=== PATIENT | female | born 1960 | race Two or more races ===

== ENCOUNTER 2020-01-15 19:43 | Inpatient (IN) | payer MEDICARE, BC ==
[~2020-01-15] VITALS: Ht 167.6 cm; Wt 98.4 kg
--- NOTE | 2020-01-15 19:45 | NUR ---
PT CAME TO THE ER FOR BLE EDEMA AND GENERALIZED BODY PAIN X 2 WEEKS. PT STATES " I TRIED WATER PILLS TO GET RID OF IT BUT IT NEVER WORKED". PT AAOX4, AMBULATORY, VSS, RESPIRATIONS EVEN AND UNLABORED ON RA W/ NAD NOTED. PT CONNECTED TO THE LATHE SANDER AND POX
[2020-01-15] MEDS ORDERED: KETOROLAC TROMETHAMINE INJ 30 MG/ML VIAL ONE (20:20)
[2020-01-15] MEDS ORDERED: KETOROLAC TROMETHAMINE INJ 30 MG/ML VIAL IV ONE (20:30)
--- NOTE | 2020-01-15 20:31 | NUR ---
BLOOD COLLECTED AND SENT TO LAB
[2020-01-15 20:53] LABS: BASOPHILS # (AUTO) 0.1 /CMM (0.0-0.2); BASOPHILS % (AUTO) 1.2 % (0.0-2.0); EOSINOPHILS % (AUTO) 2.9 % (0.0-6.0); HEMATOCRIT 31 % (33-45); HEMOGLOBIN 10.5 g/dL (11.5-14.8); LYMPHOCYTES % (AUTO) 30.2 % (20.0-44.0); MEAN CORPUSCULAR HGB CONC 33 g/dl (31.0-36.0); MEAN CORPUSCULAR VOLUME 90 fL (82-100); MONOCYTES # (AUTO) 0.5 /CMM (0.1-1.30); MONOCYTES % (AUTO) 8.1 % (2.0-12.0); NEUTROPHILS # (AUTO) 3.8 /CMM (1.8-8.9); NEUTROPHILS % (AUTO) 57.6 % (43.0-81.0); PLATELET COUNT (AUTO) 192 /CMM (150-450); RED BLOOD CELL COUNT(AUTO) 3.48 MIL/uL (4.0-5.2); WHITE BLOOD COUNT (AUTO) 6.6 K/uL (4.3-11.0)
[2020-01-15 21:05] LABS: CARBON DIOXIDE 28 mmol/L (21-32); CHLORIDE 101 mmol/L (98-107); CREATININE 0.7 mg/dL (0.6-1.3); GLUCOSE 88 mg/dL (74-106); POTASSIUM 3.9 mmol/L (3.5-5.1); SODIUM SERUM 137 mmol/L (136-145); UREA NITROGEN, BLOOD 16 mg/dL (7-18)
[2020-01-15 21:19] LABS: ALANINE AMINOTRANSFERASE 26 U/L (12-78); ALBUMIN 3.6 g/dL (3.4-5.0); ALKALINE PHOSPHATASE 92 U/L (46-116); ASPARTATE AMINOTRANSFERASE 18 U/L (15-37); B-TYPE NATRIURETIC PEPTIDE 62 PG/ML (0-125); BILIRUBIN,TOTAL 0.1 mg/dL (0.2-1.0); TOTAL PROTEIN, SERUM 7.9 g/dL (6.4-8.2)
--- NOTE | 2020-01-15 22:01 | NUR ---
COVID SWAB COLLECTED AND SENT TO LAB
--- NOTE | 2020-01-15 22:39 | NUR ---
Call from lab. Rapid Covid negative.
[2020-01-15] MEDS ORDERED: FUROSEMIDE 40 MG/4 ML VIAL IV ONE (23:00)
[2020-01-15] MEDS ORDERED: FUROSEMIDE 40 MG/4 ML VIAL ONE (23:10)
--- NOTE | 2020-01-15 23:29 | NUR ---
NURSE NOT AVAILABLE AT THIS TIME FOR REPORT.
--- NOTE | 2020-01-15 23:52 | NUR ---
REPORT CALLED TO FLIGHT SERVICE SPECIALIST MARK. WILL TRANSPORT PT VIA [facility].
[2020-01-16] MEDS ORDERED: Z GUARD REMEDY 2 OZ OINT TP PRN
[2020-01-16] MEDS ORDERED: ONDANSETRON HCL/PF 4 MG/2 ML VIAL IVP PRN
[2020-01-16] MEDS ORDERED: MAG HYDROX/AL HYDROX/SIMETH 30 ML UDC PO PRN
--- NOTE | 2020-01-16 00:05 | NUR ---
SALES PROMOTER NOTES RECEIVED PT FROM ER VIA [facility] ON ROOM AIR SPO2 98% NO SIGN AND SYMPTOMS OF RESPIRATORY DISTRESS, ABLE TO WALK GOING TO THE BED FROM [facility], V/S CHECKED WNL, HEAD TO TOE ASSESSMENT DONE, INITIAL ADMISSION ASSESSMENT DONE, PUT TO TELE MONITOR AND HAVE A READING OF SINUS RHYTHM 80'S, PT TOLD ME THAT SHE IS TAKING MEDICATION FROM HOME, I RECORD IT AND TELL TO DR. HALL, WILL VERIFY DOSE TOMORROW TO HER PHARMACY BECAUSE ITS ALREADY CLOSE RIGHT NOW, SHE SAID HER MEDICATIONS ARE BENAZEPRIL 10MG BID, MINIPRES UNKNOWN DOSAGE QHS FOR PTSD, METHADONE 60MG QAM AND FERROUS SULFATE 325MG ONCE A DAY,SAFETY MEASURE INITIATED BED ON LOWEST POSITION AND LOCKED SIDE RAILS UP X2 CALL LIGHT WITHIN REACH WILL CONT TO MONITOR THE PT
[2020-01-16 00:11] VITALS: BP 136/89
[2020-01-16] MEDS: BUMETANIDE INJ 0.25 MG/ML VIAL IV SCH ×3 (00:29→17:21)
[2020-01-16] MEDS ORDERED: POTASSIUM CHLORIDE 20 MEQ TAB.PRT.SR PO ONE (00:30)
[2020-01-16] MEDS: ENOXAPARIN SODIUM 40 MG/0.4 ML DISP.SYRIN SQ SCH ×2 (00:30→21:59)
[2020-01-16 04:00] VITALS: BP 117/73
--- NOTE | 2020-01-16 06:38 | NUR ---
RN NOTES FAX TO [facility] THE REQUEST FOR INFORMATION FOR FOR THE RELEASE OF METHADONE DOSAGE OF THE PATIENT FOR VERIFICATION WAITING RESPONSE TALK TO JOEL
--- NOTE | 2020-01-16 06:42 | NUR ---
RN NOTES RECEIVED THE RESPONSE FROM [facility] AND ITS SAYS THAT PT IS TAKING METHADONE 60MG PO QD WILL RECONCILE IT
[2020-01-16] MEDS ORDERED: METHADONE PO (06:48)
--- NOTE | 2020-01-16 07:30 | NUR ---
RN NOTES RECEIVED PATIENT ASLEEP, AWAKEN BY VVERBAL STIMULI. A/0 X4, ABLE TO MAKE NEEDS KNOWN. ON ROOM AIR, BREATHING UNLABORED, SATING FINE. SINUS RHYTHM ON THE MONITOR WITH HR ON THE MONITOR WITH HR ON THE 70s. IV ACCESS ON THE LAC G 18, INTACT AND IN PLACE, FLUSHES GOOD WITH SMALL LEAKING-WILL REINFORCE DRESSING. PATIENT ENCOURAGE TO CALL FOR ASSISTANCE, ENCOURAGE TO CALL FOR HELP AND ASSISTANCE, CALL LIGHT PLACED WITHIN REACH. BED PLACE IN LOW AND LOCKED POSITION. WILL CONTINUE TO MONITOR PATIENT ACCORDINGLY
[2020-01-16 07:37] LABS: BASOPHILS # (AUTO) 0.1 /CMM (0.0-0.2); BASOPHILS % (AUTO) 1.2 % (0.0-2.0); EOSINOPHILS % (AUTO) 4.7 % (0.0-6.0); HEMATOCRIT 33 % (33-45); LYMPHOCYTES # (AUTO) 2.5 /CMM (0.8-4.8); LYMPHOCYTES % (AUTO) 42.7 % (20.0-44.0); MEAN CORPUSCULAR HGB CONC 33 g/dl (31.0-36.0); MEAN CORPUSCULAR VOLUME 89 fL (82-100); MONOCYTES # (AUTO) 0.5 /CMM (0.1-1.30); MONOCYTES % (AUTO) 8.6 % (2.0-12.0); NEUTROPHILS # (AUTO) 2.5 /CMM (1.8-8.9); NEUTROPHILS % (AUTO) 42.8 % (43.0-81.0); PLATELET COUNT (AUTO) 192 /CMM (150-450); RED BLOOD CELL COUNT(AUTO) 3.68 MIL/uL (4.0-5.2); WHITE BLOOD COUNT (AUTO) 5.9 K/uL (4.3-11.0)
[2020-01-16 07:51] LABS: ALBUMIN 3.6 g/dL (3.4-5.0); BILIRUBIN,TOTAL 0.3 mg/dL (0.2-1.0); CALCIUM, SERUM 9.2 mg/dL (8.5-10.1); CREATININE 0.8 mg/dL (0.6-1.3); PHOSPHORUS 3.5 mg/dL (2.5-4.9); POTASSIUM 3.7 mmol/L (3.5-5.1); TOTAL PROTEIN, SERUM 7.9 g/dL (6.4-8.2)
[2020-01-16 08:00] VITALS: BP 134/69
[2020-01-16 08:00] LABS: THYROID STIMULATING HORMONE 1.359 uIU/mL (0.358-3.74)
[2020-01-16 08:02] LABS: MAGNESIUM 1.7 mg/dL (1.8-2.4)
[2020-01-16] MEDS ORDERED: BENA20TA9 PO (09:19)
[2020-01-16] MEDS ORDERED: IBUP-1957 PO (09:19)
[2020-01-16] MEDS ORDERED: PRAZ5CAP2 PO (09:19)
[2020-01-16] MEDS ORDERED: LORA-259 PO (09:19)
[2020-01-16] MEDS ORDERED: FERR325T24 PO (09:19)
[2020-01-16] MEDS ORDERED: METH10TA2 PO (09:21)
[2020-01-16] MEDS ORDERED: Magnesium 1GM/D5W 100ML PREMIX 100 ML IV SCH (09:30)
[2020-01-16] MEDS: ASPIRIN 81 MG TAB.CHEW PO SCH (11:44)
[2020-01-16] MEDS: BENAZEPRIL HCL 20 MG TABLET PO SCH ×2 (11:45→17:21)
[2020-01-16] MEDS: METOPROLOL TARTRATE 25 MG TABLET PO SCH ×2 (11:46→21:57)
[2020-01-16] MEDS: METHADONE HCL 10 MG TABLET PO SCH (11:47)
[2020-01-16 12:00] VITALS: BP 135/59
[2020-01-16] MEDS ORDERED: IOHEXOL-350 100 ML VIAL IV ONE (12:13)
[2020-01-16] MEDS ORDERED: IV NS 0.9% 250 ML IV ONE (12:13)
[2020-01-16] MEDS ORDERED: NITROGLYCERIN 0.4 MG/TAB BOTTLE SL PRN (12:30)
--- NOTE | 2020-01-16 12:30 | NUR ---
RN NOTES PATIENT TRANSPORTED TO [facility] FOR [facility]. CONSENT SIGNED BY THE PATIENT HERSELF WITH NURSE AND SPORTS MEDICINE COORDINATOR AT BEDSIDE
[2020-01-16] MEDS ORDERED: METOPROLOL TARTRATE INJ 5 MG/5 ML AMPUL ONE ×2 (12:37→12:51)
[2020-01-16] MEDS: METOPROLOL TARTRATE INJ 5 MG/5 ML AMPUL IVP PRN ×2 (12:40→12:45)
--- NOTE | 2020-01-16 13:33 | NUR ---
Spoke with patient,she is alert and pleasant. States she lives locally alone in a single level home. She ambulates with a cane but requested for a walker due to increased gait instability. She is independent with adl's, takes [employer] for transportation. She also want homehealth nurse when discharge. Her son Seth [phone] can provide ride when discharge. Addendum: 01/16/20 at 1333 by QUINTON CANO RN Amended: Links added.
[2020-01-16] MEDS: Magnesium 1GM/D5W 100ML PREMIX 100 ML IV SCH ×2 (14:10→15:45)
[2020-01-16 16:00] VITALS: BP 122/80
[2020-01-16] MEDS ORDERED: INFLUENZA VACCINE 2020-21 0.5 ML DISP.SYRIN IM ONE (17:00)
[2020-01-16] MEDS ORDERED: PNEUMOCOCCAL 23-VAL P-SAC VAC 0.5 ML VIAL SQ ONE (17:00)
--- NOTE | 2020-01-16 18:30 | NUR ---
rn notes patient with no acute changes throughout the shift. breathing unlabored, tolerating room air. denies any form pain at this time. all nursing needs attended. all concerns addressed accordingly. safety measures in place at all time. call light within reach
--- NOTE | 2020-01-16 19:38 | NUR ---
AUDIO TECHNICIAN NOTE PT IN BED A/O X 4, NO SOB, NO DISTRESS OR DISCOMFORT NOTED. DENIES PAIN. ON TELE SR HR 72. RAC #20 G SL INTACT AND PATENT. ALL NEEDS ATTENDED. SIDE RAILS UP X 2 AND CALL LIGHT WITHIN REACH. VSS. CONTINUE TO MONITOR HER.
[2020-01-16] MEDS: LORAZEPAM 1 MG TABLET PO PRN (19:51)
--- NOTE | 2020-01-16 19:53 | NUR ---
PLODDER OPERATOR NOTE NOTED PT BECOME ANXIOUS AND ASKING FOR MEDICATION. ATIVAN 1 MG PO GIVEN. CONTINUE TO MONITOR HER.
[2020-01-16 20:00] VITALS: BP 136/69
[2020-01-16] MEDS: PRAZOSIN HCL 1 MG CAPSULE PO SCH (21:58)
[2020-01-16] MEDS: ACETAMINOPHEN 325 MG TABLET PO PRN (22:04)
--- NOTE | 2020-01-16 23:53 | NUR ---
FOOD SAFETY SPECIALIST NOTE PT IN BED ASLEEP, EASILY AROUSABLE. NO DISTRESS OR DISCOMFORT NOTED. DENIES PAIN ON TELE SR . SIDE RAILS UP X 2 AND CALL LIGHT WITHIN REACH. WILL ENDORSE TO DAY SHIFT NURSE FOR CONTINUE TO CARE.
[2020-01-17] VITALS: BP 99/53
[2020-01-17 04:00] VITALS: BP 91/47
[2020-01-17 06:52] LABS: BASOPHILS % (AUTO) 0.6 % (0.0-2.0); EOSINOPHILS % (AUTO) 2.5 % (0.0-6.0); HEMATOCRIT 33 % (33-45); LYMPHOCYTES # (AUTO) 2.3 /CMM (0.8-4.8); LYMPHOCYTES % (AUTO) 31.4 % (20.0-44.0); MEAN CORPUSCULAR HGB CONC 33 g/dl (31.0-36.0); MEAN CORPUSCULAR VOLUME 89 fL (82-100); MONOCYTES # (AUTO) 0.7 /CMM (0.1-1.30); MONOCYTES % (AUTO) 9.4 % (2.0-12.0); NEUTROPHILS # (AUTO) 4.1 /CMM (1.8-8.9); NEUTROPHILS % (AUTO) 56.1 % (43.0-81.0); PLATELET COUNT (AUTO) 203 /CMM (150-450); RED BLOOD CELL COUNT(AUTO) 3.69 MIL/uL (4.0-5.2); WHITE BLOOD COUNT (AUTO) 7.4 K/uL (4.3-11.0)
[2020-01-17 07:28] LABS: ALBUMIN 3.7 g/dL (3.4-5.0); CALCIUM, SERUM 9.4 mg/dL (8.5-10.1); CARBON DIOXIDE 33 mmol/L (21-32); CHLORIDE 95 mmol/L (98-107); CREATININE 1.6 mg/dL (0.6-1.3); GLUCOSE 110 mg/dL (74-106); MAGNESIUM 2.4 mg/dL (1.8-2.4); POTASSIUM 3.3 mmol/L (3.5-5.1); SODIUM SERUM 136 mmol/L (136-145); UREA NITROGEN, BLOOD 30 mg/dL (7-18)
[2020-01-17 07:59] LABS: ALANINE AMINOTRANSFERASE 24 U/L (12-78); ALKALINE PHOSPHATASE 72 U/L (46-116); ASPARTATE AMINOTRANSFERASE 19 U/L (15-37); BILIRUBIN,TOTAL 0.3 mg/dL (0.2-1.0); TOTAL PROTEIN, SERUM 7.9 g/dL (6.4-8.2)
[2020-01-17 08:00] VITALS: BP 111/63
[2020-01-17] MEDS: METHADONE HCL 10 MG TABLET PO SCH (09:19)
[2020-01-17] MEDS: LORAZEPAM 1 MG TABLET PO PRN ×2 (09:20→21:19)
[2020-01-17] MEDS: METOPROLOL TARTRATE 25 MG TABLET PO SCH ×2 (09:20→21:21)
[2020-01-17] MEDS: BUMETANIDE INJ 0.25 MG/ML VIAL IV SCH (09:21)
[2020-01-17] MEDS: BENAZEPRIL HCL 20 MG TABLET PO SCH (09:21)
[2020-01-17] MEDS: ASPIRIN 81 MG TAB.CHEW PO SCH (09:21)
[2020-01-17] MEDS ORDERED: POTASSIUM CHLORIDE 10 MEQ TABLET.SA PO ONE (10:00)
[2020-01-17] MEDS ORDERED: POTASSIUM CHLORIDE 20 MEQ TAB.PRT.SR PO ONE ×2 (10:30→11:00)
[2020-01-17] MEDS: ACETAMINOPHEN 325 MG TABLET PO PRN ×2 (11:56→21:19)
[2020-01-17 12:00] VITALS: BP 113/51
--- NOTE | 2020-01-17 14:30 | NUR ---
Pt stated that methadone and tylenol helped with pain. Sitting up watching tv. NO acute distress noted. Resp even and unlabored. Call ta within reach. Side rails upx2.
[2020-01-17 16:00] VITALS: BP 102/54
--- NOTE | 2020-01-17 19:16 | NUR ---
Report given to ANNA Jones.
--- NOTE | 2020-01-17 19:35 | NUR ---
RN OPENING NOTES RECEIVED PT IN BED. A/O X 4. FULL CODE NOTED. ON TELE MONITORING CURRENTLY READING NSR AT 68. NO S/S OF SOB OR RESP DISTRESS NOTED AT THIS TIME. BREATHING IS EVEN AND UNLABORED. PT IS AMBULATORY USES CANE. ON CARDIAC DIET. IV SITE RIGHT AC #20 FLUSHED AND PATENT. PT VERBALIZES PAIN GENERALIZED 3/10 FOCUSED ON KNEES AND ARMS AND WRISTS, REQUESTS TYLENOL. BED IS LOCKED IN LOWEST POSITION. CALL LIGHT WITHIN REACH. WILL CONTINUE TO MONITOR.
[2020-01-17 20:00] VITALS: BP 126/75
[2020-01-17] MEDS: PRAZOSIN HCL 1 MG CAPSULE PO SCH (21:19)
[2020-01-17] MEDS: ENOXAPARIN SODIUM 40 MG/0.4 ML DISP.SYRIN SQ SCH (21:23)
[2020-01-18] VITALS: BP 103/56
[2020-01-18 04:00] VITALS: BP 106/58
--- NOTE | 2020-01-18 05:00 | NUR ---
PT REQUESTS TYLENOL FOR PAIN FOCUSED ON LEG PAIN, ACUTE SIMILAR TO CRAMP. WILL CONTINUE TO MONITOR.
[2020-01-18] MEDS: ACETAMINOPHEN 325 MG TABLET PO PRN (06:15)
[2020-01-18 06:22] LABS: BASOPHILS # (AUTO) 0.1 /CMM (0.0-0.2); BASOPHILS % (AUTO) 1.4 % (0.0-2.0); EOSINOPHILS % (AUTO) 3.5 % (0.0-6.0); HEMATOCRIT 33 % (33-45); HEMOGLOBIN 11.1 g/dL (11.5-14.8); LYMPHOCYTES # (AUTO) 2.3 /CMM (0.8-4.8); LYMPHOCYTES % (AUTO) 36.8 % (20.0-44.0); MEAN CORPUSCULAR HGB CONC 33 g/dl (31.0-36.0); MEAN CORPUSCULAR VOLUME 90 fL (82-100); MONOCYTES # (AUTO) 0.6 /CMM (0.1-1.30); NEUTROPHILS % (AUTO) 48.3 % (43.0-81.0); PLATELET COUNT (AUTO) 193 /CMM (150-450); RED BLOOD CELL COUNT(AUTO) 3.68 MIL/uL (4.0-5.2); WHITE BLOOD COUNT (AUTO) 6.1 K/uL (4.3-11.0)
--- NOTE | 2020-01-18 07:05 | NUR ---
RN CLOSING NOTES PT IS RESTING IN BED. STILL ON ROOM AIR SATURATING AT 96. TOLERATING WELL. NO S/S OF SOB OR RESP DISTRESS AT THIS TIME. BREATHING IS EVEN AND UNLABORED. PT STILL ON STRICT I/O MONITORING. PT HAD INTAKE OF 180 AND OUTPUT OF 400ML/HR ON MY SHIFT. PT IS LOOKING TO SPEAK WITH DOCTOR ABOUT UPDATED CARE. PAIN VERBALIZED PAIN THROUGHOUT NIGHT, REQUEST TYLENOL. IV SITE PATENT. BLE ANKLE EDEMA PRESENT. NO SIGNIFICANT CHANGES THROUGH MY SHIFT. PT REST WELL. AFEBRILE. WILL ENDORSE TO ONCOMING NURSE. BED IS LOCKED IN LOWEST POSITION, CALL LIGHT WITHIN REACH
[2020-01-18 07:11] LABS: ALBUMIN 3.6 g/dL (3.4-5.0); BILIRUBIN,TOTAL 0.3 mg/dL (0.2-1.0); CALCIUM, SERUM 9.2 mg/dL (8.5-10.1); CREATININE 1.1 mg/dL (0.6-1.3); MAGNESIUM 2.5 mg/dL (1.8-2.4); PHOSPHORUS 4.3 mg/dL (2.5-4.9); POTASSIUM 3.5 mmol/L (3.5-5.1); TOTAL PROTEIN, SERUM 7.8 g/dL (6.4-8.2)
--- NOTE | 2020-01-18 07:30 | NUR ---
RENTAL COUNTER CLERK AM NOTES RECEIVED PT IN BED, AWAKE ALERT X 3, ABLE TO MAKE NEEDS KNOWN, ON ROOM AIR, NOT IN ANY DISTRESS, NO SOB, RESPIRATION UNLABORED, SINUS RHYTHM ON MONITOR, HR 80, DENIES PAIN OR DISCOMFORT AT THIS TIME. RIGHT AC G 20 IV ACCESS FLUSHES WELL, SITE CLEAR, ON CARDIAC DIET, ABLE TO AMBULATE TO TOILET WITH ASSISTIVE DEVICE, NO SKIN ISSUES, STRICT INPUT OUTPUT, DISCUSSED PLAN OF CARE, VERBALIZED UNDERSTANDING, SAFETY MEASURES IN PLACE. BED LOW LOCKED, SR UP X 2. WILL CONTINUE TO MONITOR
[2020-01-18 08:00] VITALS: BP 123/50
--- NOTE | 2020-01-18 09:30 | NUR ---
RN NOTES DUE MEDS GIVEN
[2020-01-18] MEDS: METOPROLOL TARTRATE 25 MG TABLET PO SCH (09:38)
[2020-01-18] MEDS: METHADONE HCL 10 MG TABLET PO SCH (09:39)
[2020-01-18] MEDS: ASPIRIN 81 MG TAB.CHEW PO SCH (09:39)
[2020-01-18] MEDS: LORAZEPAM 1 MG TABLET PO PRN (09:43)
[2020-01-18 10:56] VITALS: BP 124/50
[2020-01-18 12:00] VITALS: BP 111/74
--- NOTE | 2020-01-18 14:25 | NUR ---
DENTURE LABORATORY TECHNICIAN NOTES PATIENT DISCHARGED TO HOME TODAY SIMBA Orozco MD IN STABLE CONDITION. PROVIDED DC INSTRUCTIONS, HEALTH TEACHINGS AND MED RECON LIST. PATIENT TO FOLLOW UP WITH PCP IN 1 -2 WEEKS AND WILL MAKE OWN APPOINTMENT SCHEDULE. RT AC IV ACCESS REMOVED, CATHETER TIP COMPLETE, PRESSURE APPLIED, NO BLEEDING, DRESSING IN PLACE. BELONGING CHECKED AND RETURNED. ALL PAPER WORKS SIGNED. PATIENT ACCOMPANIED TO [facility] BY JOZEF CHÁVEZ VIA WHEELCHAIR AND WILL GO HOME VIA [employer].
== END 2020-01-18 17:07 | disposition home health service (06) | DRG 684 ==
LOC: ER 19:52 → TELE1 23:30
PROVIDERS: ADMIT Nurse Practitioner Acute Care; ATTEND Internal Medicine
DX: N17.0 Acute kidney failure with tubular necrosis (principal); D64.9 Anemia, unspecified; E87.6 Hypokalemia; M19.90 Unspecified osteoarthritis, unspecified site; E83.42 Hypomagnesemia; I10 Essential (primary) hypertension
CPT/HCPCS: 36415; 71045-TC; 75574; 80048-TC; 80053-TC; 80076-TC; 82550-TC; 83540-TC; 83735-TC; 83880; 84100-TC; 84443-TC; 84484-TC; 85025-TC; 85652-TC; 85730-TC; 86140-TC; 87081-TC; 90732; 93307-TC; 97112-TC; 97116-TC; 97530-TC; C9803; G0378; J1650; J1885; J1940; J3475; J3490; J7050; Q2036; Q9967

== ENCOUNTER 2023-10-27 17:56 | Emergency (ER) | payer MEDICARE, BC ==
[~2023-10-27] VITALS: Ht 167.6 cm; Wt 88.5 kg
[~2023-10-27 17:56] MED LIST: BENA20TA9 PO; FERR325T24 PO; IBUP-1957 PO; LORA-259 PO; METH10TA2 PO; PRAZ5CAP2 PO
[2023-10-27 18:59] LABS: BASOPHILS # (AUTO) 0.1 K/uL (0.0-0.2); BASOPHILS % (AUTO) 1.1 % (0.0-2.0); EOSINOPHILS # (AUTO) 0.1 K/uL (0.0-0.7); EOSINOPHILS % (AUTO) 2.3 % (0.0-6.0); HEMATOCRIT 43 % (33-45); HEMOGLOBIN 14.1 g/dL (11.5-14.8); LYMPHOCYTES # (AUTO) 1.9 K/uL (0.8-4.8); MEAN CORPUSCULAR HEMOGLOBIN 29 PG (26.0-33.0); MEAN CORPUSCULAR HGB CONC 33 g/dl (31.0-36.0); MEAN CORPUSCULAR VOLUME 89 fL (82-100); MONOCYTES # (AUTO) 0.3 K/uL (0.1-1.30); MONOCYTES % (AUTO) 6.2 % (2.0-12.0); NEUTROPHILS # (AUTO) 3.2 K/uL (1.8-8.9); NEUTROPHILS % (AUTO) 57.4 % (43.0-81.0); PLATELET COUNT (AUTO) 186 K/uL (150-450); RED BLOOD CELL COUNT(AUTO) 4.82 MIL/uL (4.0-5.2); RED CELL DISTRIBUTION WIDTH 13.8 % (11.5-15.0); WHITE BLOOD COUNT (AUTO) 5.6 K/uL (4.3-11.0)
[2023-10-27 19:12] LABS: CALCIUM, SERUM 9.4 mg/dL (8.5-10.1); CREATININE 0.7 mg/dL (0.6-1.3); POTASSIUM 4.3 mmol/L (3.5-5.1)
[2023-10-27 19:13] LABS: BILIRUBIN,TOTAL 0.2 mg/dL (0.2-1.0)
[2023-10-27 19:14] LABS: ALBUMIN 3.7 g/dL (3.4-5.0); BILIRUBIN,DIRECT 0.1 mg/dL (0.0-0.2); INR 1.03 (0.91-1.10); PARTIAL THROMBOPLASTIN TIME 26.9 SEC (24.3-34.3); PROTHROMBIN TIME 10.6 SECS (9.2-11.1); TOTAL PROTEIN, SERUM 7.6 g/dL (6.4-8.2)
[2023-10-27 19:17] LABS: APPEARANCE,URINE Clear (CLEAR); BILIRUBIN,URINE Negative (NEGATIVE); BLOOD, URINE Negative Ery/uL (NEGATIVE); COLOR,URINE YELLOW (YELLOW); KETONES,URINE Negative (NEGATIVE); LEUKOCYTE ESTERASE ,URINE Negative (NEGATIVE); NITRITE, URINE Negative (NEGATIVE); PROTEIN,URINE Negative (NEGATIVE); UGLUCOSE Negative (NEGATIVE); UROBILINOGEN,URINE 0.2 EU/dL (0.2)
[2023-10-27 19:21] LABS: SALICYLATE < 2.8 mg/dL (2.8-20.0)
[2023-10-27 19:22] LABS: ACETAMINOPHEN <10 ug/ml (10-30); ALCOHOL, BLOOD 1 mg/dL (0-10)
[2023-10-27 19:55] LABS: AMPHETAMINE, URINE NEGATIVE (NEGATIVE); BARBITURATE, URINE NEGATIVE (NEGATIVE); BENZODIAZEPINE, URINE NEGATIVE (NEGATIVE); CANNABINOID, URINE NEGATIVE (NEGATIVE); COCCAINE, URINE NEGATIVE (NEGATIVE); PHENCYCLIDINE SCREEN,URINE NEGATIVE (NEGATIVE)
[2023-10-27 19:58] LABS: OPIATE, URINE POSITIVE (NEGATIVE)
[2023-10-27 23:17] VITALS: BP 128/75; TEMP 98.7; O2SAT 99
== END 2023-10-27 23:17 | disposition home or self-care (01) ==
LOC: ER 18:11
DX: R53.1 Weakness (principal); R51.9 Headache, unspecified; R94.31 Abnormal electrocardiogram [ECG] [EKG]; R93.0 Abnormal findings on diagnostic imaging of skull and head, not elsewhere classified; G25.2 Other specified forms of tremor; I11.0 Hypertensive heart disease with heart failure; I50.9 Heart failure, unspecified; G40.909 Epilepsy, unspecified, not intractable, without status epilepticus; Z86.718 Personal history of other venous thrombosis and embolism; Z60.2 Problems related to living alone; Z20.822 Contact with and (suspected) exposure to COVID-19
CPT/HCPCS: 36415; 70450-TC; 80048-TC; 80076-TC; 84484-TC; 85025-TC; 85730-TC; G0480